=== PATIENT | female | born 2000 ===

== ENCOUNTER → 2021-05-31 | Outpatient (CLI) | payer BC ==
[~2021-05-31] MED LIST: SODIUM CHLORIDE 0.9% 50 ML IVPB ONE; SODIUM CHLORIDE 0.9% 500 ML 500 ML in EMPTY BAG 1 BAG IV PRN; SOTROVIMAB (EUA) 500 MG in SODIUM CHLORIDE 0.9% 100 ML IVPB ONE
[2021-05-31 13:28] VITALS: RESP 16; TEMP 97
[2021-05-31 14:25] VITALS: BP 110/75; PULSE 100
== END ==
LOC: PROCWHC3 13:11
PROVIDERS: ATTEND Family Medicine
DX: U07.1 COVID-19 (principal)
CPT/HCPCS: 96360; Q0247; M0247